=== PATIENT | female | born 1995 | race Caucasian/White ===

== ENCOUNTER 2019-05-23 08:04 | Inpatient (IN) | payer BC ==
[~2019-05-23 08:04] MED LIST: Buffered Lidocaine 1% SYRIN* 1 ML/SYRINGE INTRADERM ONE; Lactated Ringers 1000 ML Bag* 1,000 ML IV ONE; Oxytocin in LR* 20 UNITS/1,000 ML BAG IVPB SCH
[2019-05-23 09:35] LABS: ABS Lymphocytes 0.8 10^3/ul (1.0-4.8); ABS Monocytes 0.6 10^3/ul (0-0.8); ABS Neutrophils 6.8 10^3/ul (1.5-7.7); Eosinophil % 0.4 %; Hematocrit 32 % (35-47); Hemoglobin 10.8 g/dL (12.0-16.0); Lymphocyte % 9.8 %; Mean Corpuscular HGB Conc 34 g/dL (31-36); Mean Corpuscular Hemoglobin 27 pg (27-31); Mean Corpuscular Volume 80 fL (80-97); Mean Platelet Volume 9.2 fL (7.4-10.4); Platelet Count 169 10^3/uL (150-450); Red Blood Count 3.97 10^6 /uL (3.70-4.87); Red Cell Distribution Width 19 % (10-15); White Blood Count 8.3 10^3/uL (3.5-10.8)
[2019-05-23 09:52] LABS: Albumin 3.1 g/dL (3.2-5.2); Albumin/Globulin Ratio 0.8 (1-3); BUN/Creatinine Ratio 11.9 (8-20); Calcium 8.9 mg/dL (8.6-10.3); EGFR Non-African American 109.1 (>60); Globulin 3.7 g/dL (2-4); Potassium 3.9 mmol/L (3.5-5.0); Total Bilirubin 0.5 mg/dL (0.2-1.0); Total Protein 6.8 g/dL (6.4-8.9); Uric Acid 4.9 mg/dL (2.3-6.6)
[2019-05-23 09:54] LABS: Urine Benzodiazepine Screen None Detected (None Detect); Urine Opiates Screen None Detected (None Detect)
[2019-05-23 09:55] LABS: Urine Appearance Clear; Urine Bilirubin Negative (Negative); Urine Blood Negative (Negative); Urine Color Yellow; Urine Glucose Negative (Negative); Urine Ketones Negative (Negative); Urine Nitrite Negative (Negative); Urine Protein Negative (Negative); Urine Specific Gravity 1.013 (1.010-1.030); Urine Urobilinogen Negative (Negative)
--- NOTE | 2019-05-23 10:18 | HP ---
General Information - Reason for Visit at 40 1/7 weeks. - General Information Maternal Age: 23 Grav: 1 Para: 0 SAB: 0 IEA: 0 Estimated Due Date: 05/22/19 Determined By: Early Ultrasound Gestational Age in Weeks/Days: 40 1/7 Maternal Blood Type and Rh: O Positive - Results this Serology/RPR Result: Non-Reactive Rubella Result: Immune HBsAg Result: Negative HIV Result: Negative GBS Culture Result: Negative Past Medical History Delivery History: See Records Pertinent Past Medical History: See Records Past Medical History Comment: Knee Trauma Pertinent Past Surgical History: See Records Past Surgical History Comment: Exploratory Knee Surgery Pertinent Family History: See Records - Antepartal Records Antepartal Records: Reviewed, Uncomplicated Review of Systems Constitutional: Comfortable Respiratory: Shortness of Breath: No Gastrointestinal: No Nausea/Vomiting, Normal Bowel Movement Genitourinary: No Dysuria, No Bleeding, No Leaking Fluid Musculoskeletal: No Complaint, No Epigastric Pain, Contractions - Mild, Q 4-5 minutes apart Neurological: No Headache, No Visual Changes Movement: Normal Exam Allergies/Adverse Reactions: Allergies Sulfa (Sulfonamide Antibiotics) Allergy (Verified 05/23/19 09:58) Hives/Diff.Breathing/Itching Temp 98.2 BP 141/92 P 90's RR 20 POx 99% RA Lab Values - Entire Visit: Laboratory Tests 05/23/19 05/23/19 05/23/19 09:00 09:00 09:00 WBC 8.3 RBC 3.97 Hgb 10.8 L Hct 32 L MCV 80 MCH 27 MCHC 34 RDW 19 H Plt Count 169 MPV 9.2 Neut % (Auto) 82.5 Lymph % (Auto) 9.8 [place] % (Auto) 6.9 Eos % (Auto) 0.4 Baso % (Auto) 0.4 Absolute Neuts (auto) 6.8 Absolute Lymphs (auto) 0.8 L Absolute Monos (auto) 0.6 Absolute Eos (auto) 0.0 Absolute Basos (auto) 0.0 Absolute Nucleated RBC 0.0 Nucleated RBC % 0.0 Sodium Potassium Chloride Carbon Dioxide Anion Gap BUN Creatinine Est GFR ( Amer) Est GFR (Non-Af Amer) BUN/Creatinine Ratio Glucose Uric Acid Calcium Total Bilirubin AST ALT Alkaline Phosphatase Total Protein Albumin Globulin Albumin/Globulin Ratio Urine Color Urine Appearance Urine pH Ur Specific [place] Urine Protein Urine Ketones Urine Blood Urine Nitrate Urine Bilirubin Urine Urobilinogen Ur Leukocyte Esterase Urine Glucose Urine Opiates Screen None detected Ur Barbiturates Screen None detected Ur Phencyclidine Scrn None detected Ur Amphetamines Screen None detected U Benzodiazepines Scrn None detected Urine Cocaine Screen None detected U Cannabinoids Screen None detected Blood Type O Positive Antibody Screen Negative 05/23/19 05/23/19 09:00 09:00 WBC RBC Hgb Hct MCV MCH MCHC RDW Plt Count MPV Neut % (Auto) Lymph % (Auto) [place] % (Auto) Eos % (Auto) Baso % (Auto) Absolute Neuts (auto) Absolute Lymphs (auto) Absolute Monos (auto) Absolute Eos (auto) Absolute Basos (auto) Absolute Nucleated RBC Nucleated RBC % Sodium 134 L Potassium 3.9 Chloride 106 Carbon Dioxide 20 L Anion Gap 8 BUN 8 Creatinine 0.67 Est GFR ( Amer) 132.0 Est GFR (Non-Af Amer) 109.1 BUN/Creatinine Ratio 11.9 Glucose 77 Uric Acid 4.9 Calcium 8.9 Total Bilirubin 0.50 AST 17 ALT 9 Alkaline Phosphatase 145 H Total Protein 6.8 Albumin 3.1 L Globulin 3.7 Albumin/Globulin Ratio 0.8 L Urine Color Yellow Urine Appearance Clear Urine pH 7.0 Ur Specific [place] 1.013 Urine Protein Negative Urine Ketones Negative Urine Blood Negative Urine Nitrate Negative Urine Bilirubin Negative Urine Urobilinogen Negative Ur Leukocyte Esterase Trace A Urine Glucose Negative Urine Opiates Screen Ur Barbiturates Screen Ur Phencyclidine Scrn Ur Amphetamines Screen U Benzodiazepines Scrn Urine Cocaine Screen U Cannabinoids Screen Blood Type Antibody Screen - Measurements Height: 5 ft 3 in Weight: 216 lb Weight in lbs: [phone] Body Mass Index (BMI): 38.2 Pre- Weight: 180 lb Weight Gained This : 36 lbs and 0 ozs - Exam Breast: Breast Exam Deferred CVA: No CVA Tenderness Extremities: No Edema Heart: Normal Rhythm/Heart Sounds HEENT: No Significant Findings Lungs: Clear Bilaterally Rectal: Rectal Exam Deferred Reflexes: DTR 2+ Thyroid: No Thyromegaly - Abdominal Exam Abdomen Exam: Non-Tender, Fundal Height Consistent with Dates - Ultrasound/Biophysical Profile Ultrasound Status: Not Done Biophysical Profile: Normal Reactive NST Targeted Exam Findings See L&D Outpatient Visit Provider Note for Findings: N/A Cervical Exam: 3cm Effacement: 70% Station: -1 Presenting Part: Vertex Membrane Status: Intact Bleeding/Discharge: None EFM Findings - External Monitor Findings Baseline Heart Rate: 140 External Monitor Findings: Accelerations Present, No Pattern of Variable or Late Decelerations Contractions: Mild, < 45 Seconds - Q4- 5 minutes apart. Assessment/Plan - Assessment at term with early labor. - Obstetrical Risk Factors Obstetrical Risk Factors: Obesity - Plan Plan: IV Hydration, Admit - Anticipate Vaginal Delivery - Augmentation of Labor - Date/Time of Admission Date of Admission: 05/23/19 Time of Admission: 09:00
[2019-05-23 12:47] LABS: Urine Bacteria Absent (Absent); Urine Red Blood Cell Trace(0-2/hpf) (Absent); Urine Squamous Epithelial Cell Present (Absent); Urine White Blood Cell Trace(0-5/hpf) (Absent)
[2019-05-23] MEDS: Lactated Ringers 1000 ML Bag* 1,000 ML IV SCH ×3 (15:29→23:12)
[2019-05-23] MEDS ORDERED: OBEPIDURAL* 250 ML EPIDURAL ONE (18:56)
[2019-05-23] MEDS ORDERED: Phenylephrine 40 MCG/ML SYRINGE IV PUSH PRN ×2 (19:55)
[2019-05-23] MEDS ORDERED: Sodium Citrate/Citric Acid* 15 ML UDC PO PRN (19:55)
[2019-05-23] MEDS ORDERED: Lactated Ringers 1000 ML Bag* 1,000 ML IV ONE (19:55)
[2019-05-23] MEDS ORDERED: Lactated Ringers 1000 ML Bag* 500 ML IV PRN ×2 (19:55)
[2019-05-23] MEDS ORDERED: Famotidine TAB* 20 MG PO PRN (19:55)
[2019-05-23] MEDS ORDERED: Lactated Ringers 1000 ML Bag* 1,000 ML IV SCH ×2 (20:00)
[2019-05-23] MEDS ORDERED: OBEPIDURAL* 250 ML EPIDURAL SCH (20:00)
[2019-05-23] MEDS ORDERED: Lidocaine 2% w/ EPI 1:200,000* 20 ML SDV VIAL ONE ×2 (20:27→20:48)
[2019-05-23] MEDS ORDERED: Acetaminophen TAB* 325 MG PO ONE (23:26)
[2019-05-24] MEDS: Ampicillin ADVAN(*) 2 GM in NS 0.9% 100 ML* 100 ML IVPB SCH ×3 (00:42→14:36)
[2019-05-24] MEDS ORDERED: NS 0.9% IVPB ONE (01:00)
[2019-05-24] MEDS ORDERED: GENTAMICIN ADULT IVPB ONE (01:00)
[2019-05-24] MEDS ORDERED: Glycerin ADULT SUPP PR PRN (01:24)
[2019-05-24] MEDS ORDERED: Methylergonovine INJ* 0.2 MG/ML 1ML AMP IM ONE (01:24)
[2019-05-24] MEDS ORDERED: Acetaminophen TAB* 325 MG PO PRN (01:24)
[2019-05-24] MEDS ORDERED: Misoprostol TAB* 200 MCG PR ONE (01:24)
--- NOTE | 2019-05-24 01:55 | PROCNOTE ---
[facility] OB: Delivery Note - Delivery A Date of : 05/24/19 Time of : 00:35 [place] Sex: Male - "[place]" Weight at : 9 lb 11 oz Score 1 Minute: 6 Score 5 Minutes: 9 Gestational Age in Weeks and Days at Delivery: 40 Weeks and 2 Days Delivery Method: Spontaneous Vaginal Labor: Induced Did Patient attempt ?: N/A, No Previous Anesthesia/Analgesia: CEI for Labor Delivered By: Alonzo Ravi - Nursery Level of Nursery: Regular/Bedside - Perineum Perineal Injury: 2nd Degree Perineal Repair: By Delivering Practioner - Events Delivery Events of Note: Pitocin During Labor, Chorio in Labor, Maternal Temperature during Labor - Risk for Falls Delivered OB Patient- Risk for Falls: Heavy Bleeding Fall Risk: Patient is at High Risk for Falls - Additional Delivery Notes Additional Delivery Notes: Delivery for Dr Welch who was in surgery. Length of labor 15'49", pushed 30 min. Baby born OA to MARTHA, shoulders following smoothly. Delivered through nuchal cord, unwrapped after delivery. To maternal abdomen, initially stunned but spontaneous cry after vigorous stimulation and bulb syringe. Cord clamped and cut by FOB. Placenta delivered with cord traction, several gushes of bleeding prior to release. Fundus firmed initially with massage and pitocin infusing but bleeding again noted and cytotec 800mcg [place] and methergine 0.2mg IM given with good resolution of bleeding. Repair as above. Baby at breast to initate .
[2019-05-24] MEDS ORDERED: Oxytocin in LR* 20 UNITS/1,000 ML BAG IVPB SCH (02:00)
[2019-05-24] MEDS: Ibuprofen TAB* 600 MG PO PRN ×3 (02:49→14:25)
[2019-05-24] MEDS: Dibucaine 1% 28.35 GM TUBE PR PRN ×2 (03:51→20:21)
[2019-05-24] MEDS: Witch Hazel PAD* JAR TOPICAL PRN ×2 (03:51→20:21)
[2019-05-24] MEDS: Docusate CAP* 100 MG PO SCH ×3 (08:18→20:21)
[2019-05-25 06:31] LABS: ABS Lymphocytes 1.7 10^3/ul (1.0-4.8); ABS Monocytes 0.7 10^3/ul (0-0.8); ABS Neutrophils 12.8 10^3/ul (1.5-7.7); Eosinophil % 0.2 %; Hematocrit 22 % (35-47); Hemoglobin 7.5 g/dL (12.0-16.0); Lymphocyte % 11.3 %; Mean Corpuscular HGB Conc 34 g/dL (31-36); Mean Corpuscular Hemoglobin 27 pg (27-31); Mean Corpuscular Volume 81 fL (80-97); Mean Platelet Volume 8.9 fL (7.4-10.4); Platelet Count 171 10^3/uL (150-450); Red Blood Count 2.73 10^6 /uL (3.70-4.87); Red Cell Distribution Width 21 % (10-15); White Blood Count 15.3 10^3/uL (3.5-10.8)
[2019-05-25] MEDS: Docusate CAP* 100 MG PO SCH ×2 (08:27→19:48)
[2019-05-25] MEDS: Ibuprofen TAB* 600 MG PO PRN (08:27)
[2019-05-25] MEDS: Ferrous Gluconate TAB* 324 MG TAB PO SCH ×2 (08:28→19:47)
[2019-05-26] MEDS: Ampicillin ADVAN(*) 2 GM in NS 0.9% 100 ML* 100 ML IVPB SCH ×2 (07:22→09:42)
[2019-05-26] MEDS: Docusate CAP* 100 MG PO SCH ×2 (07:23→08:33)
[2019-05-26 07:27] VITALS: BP 126/77
[2019-05-26] MEDS: Ferrous Gluconate TAB* 324 MG TAB PO SCH (08:33)
== END 2019-05-26 11:55 | disposition home or self-care (01) | DRG 560 ==
LOC: MCHOBOUT 08:04 → MCHOB 08:10
PROVIDERS: ADMIT Obstetrics & Gynecology; ATTEND Midwife
PROC: 4A1HXCZ Monitoring of Products of Conception, Cardiac Rate, External Approach (ICD-10-PCS; 2019-05-23)
PROC: 10907ZC Drainage of Amniotic Fluid, Therapeutic from Products of Conception, Via Natural or Artificial Opening (ICD-10-PCS; 2019-05-23)
PROC: 3E0P7VZ Introduction of Hormone into Female Reproductive, Via Natural or Artificial Opening (ICD-10-PCS; 2019-05-23)
PROC: 3E033VJ Introduction of Other Hormone into Peripheral Vein, Percutaneous Approach (ICD-10-PCS; 2019-05-23)
PROC: 10E0XZZ Delivery of Products of Conception, External Approach (ICD-10-PCS; principal; 2019-05-24)
PROC: 0KQM0ZZ Repair Perineum Muscle, Open Approach (ICD-10-PCS; 2019-05-24)
DX: O48.0 Post-term pregnancy (principal); O41.1230 Chorioamnionitis, third trimester, not applicable or unspecified; Z37.0 Single live birth; O72.1 Other immediate postpartum hemorrhage; D62 Acute posthemorrhagic anemia; O99.214 Obesity complicating childbirth; Z3A.40 40 weeks gestation of pregnancy; O70.1 Second degree perineal laceration during delivery; O69.81X0 Labor and delivery complicated by cord around neck, without compression, not applicable or unspecified; Z88.2 Allergy status to sulfonamides; O90.81 Anemia of the puerperium
CPT/HCPCS: 36415; 80053; 80307; 81003; 81015; 84550; 85025; 86850; 86900; 86901; 87086; 88307; A9270-GY; G0480; J1580; J2210